=== PATIENT | male | born 1980 | race Hispanic/Latino ===

== ENCOUNTER 2018-10-03 14:07 | Inpatient (IN) | payer SELFPAY ==
[~2018-10-03] VITALS: Ht 177.8 cm; Wt 150.7 kg
[2018-10-03] MEDS ORDERED: SODIUM CHLORIDE 0.9% 1000ML 1,000 ML IV ONE ×4 (14:56→20:36)
[2018-10-03 15:03] LABS: CREATININE 1.1 mg/dL (0.5-1.5); POTASSIUM 3.8 mmol/L (3.5-5.1)
[2018-10-03 15:05] LABS: INR 0.95 (0.85-1.15); PARTIAL THROMBOPLASTIN TIME 27.9 SEC (26.3-35.5)
[2018-10-03] MEDS ORDERED: IOHEXOL-350 75 ML VIAL IV ONE (15:07)
[2018-10-03 15:08] LABS: APPEARANCE,URINE Cloudy (CLEAR); BILIRUBIN,URINE Negative (NEGATIVE); COLOR,URINE Yellow (YELLOW); GLUCOSE, URINE (UA) Negative (NEGATIVE); KETONES,URINE Negative (NEGATIVE); LEUKOCYTE ESTERASE ,URINE Negative (NEGATIVE); NITRATE,URINE Negative (NEGATIVE); OCCULT BLOOD,URINE Trace (NEGATIVE); PH,URINE 5.5 (5.0-8.0); PROTEIN,URINE Negative (NEGATIVE)
[2018-10-03] MEDS ORDERED: ONDANSETRON HCL 4 MG/2 ML VIAL ONE (15:08)
[2018-10-03] MEDS ORDERED: MORPHINE SULFATE 4 MG/1ML SYG ONE (15:08)
[2018-10-03 15:15] LABS: BASOPHILS % (AUTO) 0.3 % (0.0-5.0); EOSINOPHILS % (AUTO) 0.1 % (0.0-8.0); HEMATOCRIT 44.5 % (42-54); LYMPHOCYTES % (AUTO) 9.8 % (21.0-51.0); MEAN CORPUSCULAR HEMOGLOBIN 28.4 pg (27.0-33.0); MEAN CORPUSCULAR HGB CONC 33.8 g/dL (32.0-36.0); MEAN CORPUSCULAR VOLUME 84.1 fL (79-99); MONOCYTES % (AUTO) 6.6 % (3.0-13.0); NEUTROPHILS % (AUTO) 83.2 % (40.0-77.0); NUCLEATED RED BLOOD CELLS 0.1 % (0.0-0.19); PLATELET COUNT (AUTO) 250 K/uL (130-400); RED BLOOD CELL COUNT(AUTO) 5.29 MIL/uL (4.50-6.20); RED CELL DISTRIBUTION WIDTH 14.4 % (11.0-15.5); WHITE BLOOD COUNT (AUTO) 13.7 K/uL (4.8-10.8)
[2018-10-03 15:16] LABS: BACTERIA,URINE Rare /HPF (None Seen); RBC,URINE 0-1 /HPF (0-1); SQUAMOUS EPITHELIAL CELL,UR Rare /HPF (0-2); WBC,URINE 0-1 /HPF (0-1)
[2018-10-03 15:18] LABS: ALBUMIN 3.8 g/dL (3.5-5.0); BILIRUBIN,TOTAL 0.5 mg/dL (0.2-1.0); TOTAL PROTEIN, SERUM 8.2 g/dL (6.0-8.3)
[2018-10-03] MEDS ORDERED: ZOSYN 3.375GM+NS 50ML 50 ML IV ONE (15:26)
[2018-10-03] MEDS ORDERED: ACETAMINOPHEN EXTRA STRENGTH 500 MG TABLET ONE (15:26)
[2018-10-03] MEDS ORDERED: MORPHINE SULFATE 2 MG/ML 1ML SYG ONE (16:29)
[2018-10-03] MEDS: SODIUM CHLORIDE 0.9% 1000ML 1,000 ML IV SCH (19:09)
[2018-10-03] MEDS ORDERED: ONDANSETRON HCL 4 MG/2 ML VIAL IV PRN (19:15)
[2018-10-03] MEDS ORDERED: IBUPROFEN 600 MG TABLET ONE (20:57)
[2018-10-03] MEDS ORDERED: ACETAMINOPHEN 325 MG TAB PO PRN (22:00)
[2018-10-03] MEDS ORDERED: IBUPROFEN 600 MG TABLET PO PRN (22:00)
[2018-10-03] MEDS ORDERED: ACETAMINOPHEN 325 MG TAB ONE (22:15)
[2018-10-03 23:45] VITALS: BP 156/82
[2018-10-04] MEDS ORDERED: MORPHINE SULFATE 4 MG/1ML SYG IV PRN (00:15)
[2018-10-04] MEDS: ZOSYN 3.375GM+NS 50ML 50 ML IV SCH ×4 (00:16→20:38)
[2018-10-04 04:00] VITALS: BP 133/84
[2018-10-04 06:29] LABS: BASOPHILS % (AUTO) 0.8 % (0.0-5.0); EOSINOPHILS % (AUTO) 0.4 % (0.0-8.0); HEMATOCRIT 39.5 % (42-54); LYMPHOCYTES % (AUTO) 11.5 % (21.0-51.0); MEAN CORPUSCULAR HEMOGLOBIN 28.8 pg (27.0-33.0); MEAN CORPUSCULAR VOLUME 84.6 fL (79-99); MONOCYTES % (AUTO) 6.8 % (3.0-13.0); NEUTROPHILS % (AUTO) 80.5 % (40.0-77.0); PLATELET COUNT (AUTO) 219 K/uL (130-400); RED BLOOD CELL COUNT(AUTO) 4.67 MIL/uL (4.50-6.20); RED CELL DISTRIBUTION WIDTH 14.3 % (11.0-15.5); WHITE BLOOD COUNT (AUTO) 10.8 K/uL (4.8-10.8)
[2018-10-04] MEDS: SODIUM CHLORIDE 0.9% 1000ML 1,000 ML IV SCH ×3 (06:30→22:46)
[2018-10-04] MEDS: MORPHINE SULFATE 2 MG/ML 1ML SYG IV PRN ×2 (06:35→20:48)
[2018-10-04 06:42] LABS: BILIRUBIN,TOTAL 0.9 mg/dL (0.2-1.0)
[2018-10-04 07:58] VITALS: BP 132/76
[2018-10-04] MEDS: ENOXAPARIN SODIUM 30 MG/0.3 ML SQ SCH (11:12)
[2018-10-04] MEDS: PANTOPRAZOLE 40 MG/VIAL IVP SCH (11:12)
[2018-10-04 11:27] VITALS: BP 134/78
--- NOTE | 2018-10-04 15:12 | NUR ---
DCP CM met with pt discussed dc plans. Pt is independent prior to admission, lives at home with spouse. Denies any equipments/services. Pt feels safe to go back home, still works and drives, spouse able to assist with transportation and needs as necessary. DC plan to home once stable. CM to cont to follow up. Addendum: 10/04/18 at 1513 by GABBY HERNANDEZ LVN CM Amended: Links added.
--- NOTE | 2018-10-04 16:00 | NUR ---
HOSPITALIST DR. BELLO AND DR. REES HAVE ALREADY ROUNDED ON FOURTH FLOOR. PATIENT REPORTS NO DOCTOR HAS SEEN HIM TODAY AND STATES "ITS IMPORTANT FOR ME TO KNOW IF IM GOING TO STAY ONE MORE NIGHT SO I CAN CALL MY WORK. AND I NEED TO HEAR IT FROM THE DOCTOR." INFORMED BOTH HOSPITALIST DR. BELLO AND YENNY LEWIS FOR DR. REES THAT PATIENT HAS NOT BEEN SEEN TODAY.
[2018-10-04 16:43] VITALS: BP 126/74
[2018-10-04 19:22] VITALS: BP 157/97
[2018-10-04 23:33] VITALS: BP 157/96
[2018-10-05 03:45] VITALS: BP 122/80
[2018-10-05 05:49] LABS: HEMATOCRIT 39.6 % (42-54); MEAN CORPUSCULAR HGB CONC 33.3 g/dL (32.0-36.0); NUCLEATED RED BLOOD CELLS 0.1 % (0.0-0.19); PLATELET COUNT (AUTO) 211 K/uL (130-400); RED BLOOD CELL COUNT(AUTO) 4.71 MIL/uL (4.50-6.20); RED CELL DISTRIBUTION WIDTH 14.3 % (11.0-15.5); WHITE BLOOD COUNT (AUTO) 8.2 K/uL (4.8-10.8)
[2018-10-05 06:00] LABS: HEMOGLOBIN A1C 6.3 % (4.0-6.0)
[2018-10-05 06:01] LABS: CREATININE 0.9 mg/dL (0.5-1.5); POTASSIUM 3.6 mmol/L (3.5-5.1)
[2018-10-05] MEDS: SODIUM CHLORIDE 0.9% 1000ML 1,000 ML IV SCH ×3 (06:02→19:09)
[2018-10-05] MEDS: ZOSYN 3.375GM+NS 50ML 50 ML IV SCH ×3 (06:02→21:07)
[2018-10-05 06:46] LABS: ERYTHROCYTE SEDIMENTATION RATE 50 MM/HR (0-15)
[2018-10-05 07:37] VITALS: BP 158/92
[2018-10-05] MEDS: ENOXAPARIN SODIUM 30 MG/0.3 ML SQ SCH (10:57)
[2018-10-05] MEDS: PANTOPRAZOLE 40 MG/VIAL IVP SCH (10:57)
[2018-10-05 11:51] VITALS: BP 154/94
[2018-10-05 16:29] VITALS: BP 153/89
[2018-10-05 19:50] VITALS: BP 183/99
[2018-10-05] MEDS: MORPHINE SULFATE 2 MG/ML 1ML SYG IV PRN (21:22)
[2018-10-05] MEDS ORDERED: CLONIDINE HCL 0.1 MG TABLET PO PRN (22:30)
[2018-10-05] MEDS ORDERED: CLONIDINE HCL 0.1 MG TABLET ONE (22:44)
[2018-10-05 23:50] VITALS: BP 149/91
[2018-10-06] MEDS: SODIUM CHLORIDE 0.9% 1000ML 1,000 ML IV SCH ×2 (01:36→09:51)
[2018-10-06 04:15] VITALS: BP 151/91
[2018-10-06] MEDS: ZOSYN 3.375GM+NS 50ML 50 ML IV SCH ×2 (04:31→13:11)
[2018-10-06 05:39] LABS: HEMATOCRIT 39.7 % (42-54); MEAN CORPUSCULAR HEMOGLOBIN 28.7 pg (27.0-33.0); MEAN CORPUSCULAR HGB CONC 34.3 g/dL (32.0-36.0); MEAN CORPUSCULAR VOLUME 83.8 fL (79-99); PLATELET COUNT (AUTO) 262 K/uL (130-400); RED BLOOD CELL COUNT(AUTO) 4.74 MIL/uL (4.50-6.20); RED CELL DISTRIBUTION WIDTH 14.3 % (11.0-15.5); WHITE BLOOD COUNT (AUTO) 6.8 K/uL (4.8-10.8)
[2018-10-06 05:49] LABS: CREATININE 0.9 mg/dL (0.5-1.5); CRP QUANTITATIVE 104.5 mg/L (0.00-9.0); POTASSIUM 3.4 mmol/L (3.5-5.1)
[2018-10-06 07:22] LABS: ERYTHROCYTE SEDIMENTATION RATE 60 MM/HR (0-15)
[2018-10-06] MEDS ORDERED: LIDOCAINE HCL-MPF 1% 2ML VIAL IVP PRN (07:30)
[2018-10-06] MEDS ORDERED: POTASSIUM CHLORIDE 20 MEQ ERTAB PO PRN (07:30)
[2018-10-06] MEDS ORDERED: POTASSIUM CHLORIDE 10MEQ/100ML 100 ML IV PRN (07:30)
[2018-10-06] MEDS ORDERED: POTASSIUM CHLORIDE 10% ELIXIR 20 MEQ/15 ML UDCUP PO PRN (07:30)
[2018-10-06 08:00] VITALS: BP 163/91
[2018-10-06] MEDS ORDERED: AMLODIPINE BESYLATE 5 MG TAB PO SCH (09:00)
[2018-10-06] MEDS ORDERED: FAMOTIDINE/PF 20 MG/2 ML VIAL IV SCH (09:00)
[2018-10-06] MEDS: ENOXAPARIN SODIUM 30 MG/0.3 ML SQ SCH (09:52)
[2018-10-06] MEDS ORDERED: METR500T PO (10:13)
[2018-10-06] MEDS ORDERED: AMLO5TAB9 PO (10:13)
[2018-10-06] MEDS ORDERED: LEVO500T2 PO (10:13)
[2018-10-06 11:00] VITALS: BP 164/99
[2018-10-06 16:00] VITALS: BP 140/95
== END 2018-10-06 20:50 | disposition home or self-care (01) | DRG 872 ==
LOC: EDH 14:07 → EDHIP 14:08 → 4BH 10-04
PROVIDERS: ADMIT Hospitalist; ATTEND Hospitalist
DX: A41.9 Sepsis, unspecified organism (principal); Z68.42 Body mass index [BMI] 45.0-49.9, adult; K57.92 Diverticulitis of intestine, part unspecified, without perforation or abscess without bleeding; R65.20 Severe sepsis without septic shock; E66.01 Morbid (severe) obesity due to excess calories; I10 Essential (primary) hypertension; K76.0 Fatty (change of) liver, not elsewhere classified; Z79.899 Other long term (current) drug therapy; Z83.3 Family history of diabetes mellitus; Z82.49 Family history of ischemic heart disease and other diseases of the circulatory system
CPT/HCPCS: 36415; 71045; 74177; 80048; 80053; 81001; 82550; 83036; 83605; 83690; 84484; 85025; 85027; 85610; 85651; 85730; 86140; 87040; 87486; 87581; 87633; 87798; 87804; 93005; 99291; C9113; G0378; J1650; J2270; J2405; J2543; J3490; J7030; Q9967

== ENCOUNTER 2022-11-28 01:10 | Emergency (ER) | payer OTHER ==
[~2022-11-28] VITALS: Ht 175.3 cm; Wt 154.2 kg
[~2022-11-28 01:10] MED LIST: AMLO-257 PO; LEVO500T2 PO; METR500T PO
[2022-11-28] MEDS ORDERED: METF-444 PO (02:01)
[2022-11-28] MEDS ORDERED: NYST15CR40 TP (02:01)
[2022-11-28 02:15] VITALS: BP 129/78
== END 2022-11-28 02:16 | disposition home or self-care (01) ==
LOC: EDH 01:10
DX: B37.42 Candidal balanitis (principal); I10 Essential (primary) hypertension; E11.65 Type 2 diabetes mellitus with hyperglycemia; E66.9 Obesity, unspecified; Z68.43 Body mass index [BMI] 50.0-59.9, adult; Z79.899 Other long term (current) drug therapy
CPT/HCPCS: 82948